=== PATIENT | male | born 1975 | race Caucasian/White ===

== ENCOUNTER 2018-06-09 05:05 | Emergency (ER) | payer OTHER ==
[~2018-06-09] VITALS: Ht 177.8 cm; Wt 88.1 kg
[2018-06-09 05:25] LABS: BASO # 0.1 x10^3/uL (0.0-0.2); BASO % 1 % (0-3); EOS # 0.2 x10^3/uL (0.0-0.7); EOS % 3 % (0-3); HEMATOCRIT 48.3 % (39.0-53.0); HEMOGLOBIN 16.7 g/dL (13.0-17.5); LYMPH # 2.8 x10^3/uL (1.0-4.8); LYMPH % 29 % (24-48); MEAN CORPUSCULAR HEMOGLOBIN 31 pg (25-35); MEAN CORPUSCULAR HGB CONC 35 g/dL (31-37); MEAN CORPUSCULAR VOLUME 90 fL (79-100); MONO # 0.9 x10^3/uL (0.0-1.1); MONO % 9 % (0-9); NEUT # 5.7 x10^3uL (1.8-7.7); NEUT % 59 % (31-73); PLATELET COUNT 236 x10^3/uL (140-400); RED CELL DISTRIBUTION WIDTH 12.8 % (11.5-14.5); WHITE BLOOD COUNT 9.7 x10^3/uL (4.0-11.0)
[2018-06-09] MEDS ORDERED: NITROGLYCERIN SUBLINGUAL 0.4 MG BOTTLE OF 25. SL ONE (05:30)
[2018-06-09 05:40] LABS: ALBUMIN 4.2 g/dL (3.4-5.0); ALBUMIN/GLOBULIN RATIO 1.2 (1.0-1.7); CALCIUM 9.3 mg/dL (8.5-10.1); CREATININE 1.2 mg/dL (0.7-1.3); GFR 66.4; POTASSIUM 4.1 mmol/L (3.5-5.1); TOTAL BILIRUBIN 0.6 mg/dL (0.2-1.0); TOTAL PROTEIN 7.6 g/dL (6.4-8.2)
--- NOTE | 2018-06-09 06:02 | EKG ---
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
--- NOTE | 2018-06-09 06:22 | ED.ADGEN ---
Past History Past Medical History: Hypertension Past Surgical History: Other Alcohol Use: Rarely Drug Use: None Adult General Chief Complaint Chief Complaint chest pain HPI HPI Patient is a 42 yo male with h/o HTN and family of CAD < 50 years of age who presents with acute onset left chest pain described as soreness starting approximately 2 hours prior to ED arrival. Chest discomfort radiates to left shoulder and left lower chest. It is associated with sweats and nausea. Patient drove to the [facility] and was given aspirin and transported [facility] department[facility]'s toes blood pressure is 190/100. Patient reports compliance with medication therapy. Current pain is rated 4 out of 10. No fever, cough, sore throat, leg pain or swelling. Patient denies exertional chest pain with exercise and returned 2 hours prior to ED arrival. Patient is a nonsmoker does not have any other cardiac risk factors. [] Review of Systems Review of Systems Review symptoms as per history of present illness. All other review symptoms are negative. [] All other systems were reviewed and found to be within normal limits, except as documented in this note. Current Medications Current Medications Current Medications Medications (Trade) Dose Ordered Sig/Annita Start Time Stop Time Status Last Admin Dose Admin Nitroglycerin (Nitrostat) 0.4 mg 1X ONCE 06/09/18 05:30 06/09/18 05:31 DC 06/09/18 05:22 0.4 MG Allergies Allergies Allergies Coded Allergies Type Severity Reaction Last Updated Verified No Known Drug Allergies 06/09/18 No Physical Exam Physical Exam Constitutional: Well developed, well nourished, no acute distress, non-toxic appearance. [] HENT: Normocephalic, atraumatic, bilateral external ears normal, oropharynx moist, no oral exudates, nose normal. [] Eyes: PERRLA, EOMI, conjunctiva normal, no discharge. [] Neck: Normal range of motion, no tenderness, supple, no stridor. [] Cardiovascular:Heart rate regular rhythm, no murmur, regular rate and rhythm. [] Lungs & Thorax: Bilateral breath sounds clear to auscultation [] Abdomen: Bowel sounds normal, soft, no tenderness, no masses, no pulsatile masses. [] Skin: Warm, dry, no erythema, no rash. [] Back: No tenderness, no CVA tenderness. [] Extremities: No tenderness, no cyanosis, negative Homans signs [] Neurologic: Alert and oriented X 3, normal motor function, normal sensory function, no focal deficits noted. [] Psychologic: Affect normal, judgement normal, mood normal. [] Current Patient Data Vital Signs Vital Signs Date Time Temp Pulse Resp B/P (MAP) Pulse Ox O2 Delivery O2 Flow Rate FiO2 06/09/18 05:22 58 156/89 06/09/18 05:10 98.4 18 96 Room Air Lab Results Laboratory Tests Test 06/09/18 05:09 White Blood Count 9.7 x10^3/uL (4.0-11.0) Red Blood Count 5.40 x10^6/uL (4.30-5.70) Hemoglobin 16.7 g/dL (13.0-17.5) Hematocrit 48.3 % (39.0-53.0) Mean Corpuscular Volume 90 fL (79-100) Mean Corpuscular Hemoglobin 31 pg (25-35) Mean Corpuscular Hemoglobin Concent 35 g/dL (31-37) Red Cell Distribution Width 12.8 % (11.5-14.5) Platelet Count 236 x10^3/uL (140-400) Neutrophils (%) (Auto) 59 % (31-73) Lymphocytes (%) (Auto) 29 % (24-48) Monocytes (%) (Auto) 9 % (0-9) Eosinophils (%) (Auto) 3 % (0-3) Basophils (%) (Auto) 1 % (0-3) Neutrophils # (Auto) 5.7 x10^3uL (1.8-7.7) Lymphocytes # (Auto) 2.8 x10^3/uL (1.0-4.8) Monocytes # (Auto) 0.9 x10^3/uL (0.0-1.1) Eosinophils # (Auto) 0.2 x10^3/uL (0.0-0.7) Basophils # (Auto) 0.1 x10^3/uL (0.0-0.2) Sodium Level 138 mmol/L (136-145) Potassium Level 4.1 mmol/L (3.5-5.1) Chloride Level 102 mmol/L (98-107) Carbon Dioxide Level 33 mmol/L (21-32) H Anion Gap 3 (6-14) L Blood Urea Nitrogen 20 mg/dL (8-26) Creatinine 1.2 mg/dL (0.7-1.3) Estimated GFR (Cockcroft-Gault) 66.4 BUN/Creatinine Ratio 17 (6-20) Glucose Level 97 mg/dL (70-99) Calcium Level 9.3 mg/dL (8.5-10.1) Total Bilirubin 0.6 mg/dL (0.2-1.0) Aspartate Amino Transferase (AST) 19 U/L (15-37) Alanine Aminotransferase (ALT) 28 U/L (16-63) Alkaline Phosphatase 61 U/L (46-116) Troponin I Quantitative < 0.017 ng/mL (0-0.055) Total Protein 7.6 g/dL (6.4-8.2) Albumin 4.2 g/dL (3.4-5.0) Albumin/Globulin Ratio 1.2 (1.0-1.7) EKG EKG [EKG: Normal sinus rhythm, rate 50, ST upsloping segments in leads 1, 2, aVL, T- wave inversion in leads 3. No acute ST segment elevation. ] Radiology/Procedures Radiology/Procedures [Chest x-ray: No acute cardiopulmonary disease on preliminary ED review of] Course & Med Decision Making Course & Med Decision Making Pertinent Labs and Imaging studies reviewed. (See chart for details) [Chest pain, 42 year-old male with moderate risk factors. Chest pain improved from a 4/10 to 1I 10 with nitroglycerin 1. Initial troponin is negative. Discussed with patient that given his risk factors and limitations of testing and emergency department ongoing chest pain, admission and transfer to [facility] is highly recommended. Patient is unsure if he wishes to be admitted at this time and currently seeking to get a hold of his commanding officer. Patient will be kept in the emergency department until he can determine what it is that he would wishes to do. Patient verbalizes understanding of risks and wishes to leave AGAINST MEDICAL ADVICE. Specifically risks of and disability were discussed with the patient and accepts responsibility for his incisions. He is further instructed that should he change his mind regarding hospital admission, he should immediately return. He is to otherwise follow-up with his post physician later today Final Impression Final Impression [1. Chest pain] Dragon Disclaimer Dragon Disclaimer This electronic medical record was generated, in whole or in part, using a voice recognition dictation system. NIKA ARRINGTON DO Jun 09, 2018 06:22
[2018-06-09 06:45] VITALS: BP 154/101
--- NOTE | 2018-06-09 07:40 | RAD ---
Indication: Chest pain Technique: Upright portable chest radiograph was obtained. No comparison is available. Findings: The lungs are clear. The cardiopulmonary silhouette is within normal limits. Bony structures are intact. Leads overlie the patient. Impression: No acute thoracic findings. Electronically signed by: Callum Hoyos MD (06/09/2018 7:37 AM) [facility]
== END 2018-06-09 06:51 | disposition left against medical advice (07) ==
LOC: ER 05:05
DX: R07.89 Other chest pain (principal); I10 Essential (primary) hypertension; I25.10 Atherosclerotic heart disease of native coronary artery without angina pectoris
CPT/HCPCS: 36415; 71045; 80053; 84484; 85025; 85379; 93005; 99285-25

== ENCOUNTER 2018-06-09 11:46 | Emergency (ER) | payer OTHER ==
--- NOTE | 2018-06-09 12:14 | PHYS DOC ---
Past History Past Medical History: Hypertension Past Surgical History: Other Alcohol Use: Rarely Drug Use: None Adult General Chief Complaint Chief Complaint: CHEST PAIN [facility] Patient is a 42 y/o male who presents for evaluation of substernal cp which began this morning around 3 AM. He has a history of hypertension and a family history of coronary artery disease below 50 yrs old. His pain radiates from the substernal region to the left shoulder. He was seen in the emergency department this morning and he was strongly advised that he be admitted however he had obligations with the and decided to leave AGAINST MEDICAL ADVICE. Was given 4 baby aspirin while he was here as well as nitroglycerin. He states the pain is worse and has been constant since he left. His enzymes were unremarkable earlier. His EKG upon arrival show some very mild questionable ST upsloping/elevation in 1, 2, 3, and aVL which is essentially unchanged from the EKG this morning but is noted to be abnormal. This is not obvious STEMI however I have paged interventional cardiology [facility] in case they would like to transfer the patient emergently. Otherwise, I plan to obtain cardiac enzymes to evaluate if there is been any cardiac ischemia and then transfer the patient to a facility with a boot and shoe laborer. The pt does appear uncomfortable. His BP upon arrival is 150/100. Review of Systems Review of Systems Constitutional: Denies fever or chills [] Eyes: Denies change in visual acuity, redness, or eye pain [] HENT: Denies nasal congestion or sore throat [] Respiratory: Denies cough or shortness of breath [] Cardiovascular: No additional information not addressed in [facility] [] +cp GI: Denies abdominal pain, nausea, vomiting, bloody stools or diarrhea [] : Denies dysuria or hematuria [] Musculoskeletal: Denies back pain or joint pain [] Integument: Denies rash or skin lesions [] Neurologic: Denies headache, focal weakness or sensory changes [] Endocrine: Denies polyuria or polydipsia [] All other systems were reviewed and found to be within normal limits, except as documented in this note. Allergies Allergies Allergies Coded Allergies Type Severity Reaction Last Updated Verified No Known Drug Allergies 06/09/18 No Physical Exam Physical Exam Constitutional: Well developed, well nourished, no acute distress, non-toxic appearance. [] Appears uncomfortable HENT: Normocephalic, atraumatic, bilateral external ears normal, oropharynx moist, no oral exudates, nose normal. [] Eyes: PERRLA, EOMI, conjunctiva normal, no discharge. [] Neck: Normal range of motion, no tenderness, supple, no stridor. [] Cardiovascular:Heart rate regular rhythm, no murmur [] Lungs & Thorax: Bilateral breath sounds clear to auscultation [] Abdomen: Bowel sounds normal, soft, no tenderness, no masses, no pulsatile masses. [] Skin: Warm, dry, no erythema, no rash. [] Back: No tenderness, no CVA tenderness. [] Extremities: No tenderness, no cyanosis, no clubbing, ROM intact, no edema. [] Neurologic: Alert and oriented X 3, normal motor function, normal sensory function, no focal deficits noted. [] Psychologic: Affect normal, judgement normal, mood normal. [] EKG EKG NSR, rate of 81, questionable upsloping/mild elevation in I, II, and aVL, unchanged from previous ekg performed earlier this morning, no STEMI Radiology/Procedures Radiology/Procedures [] Course & Med Decision Making Course & Med Decision Making Pertinent Labs and Imaging studies reviewed. (See chart for details) [] Laboratory Tests Test 06/09/18 12:15 Creatine Kinase 102 U/L Creatine Kinase MB (Mass) 0.9 ng/mL Creatine Kinase MB Relative Index 0.9 % Troponin I Quantitative < 0.017 ng/mL Current Medications Medications (Trade) Dose Ordered Sig/Annita Route PRN Reason Start Time Stop Time Status Last Admin Dose Admin Morphine Sulfate (Morphine 4mg Syringe) 6 mg 1X ONCE IV 06/09/18 12:30 06/09/18 12:31 DC 06/09/18 12:23 Nitroglycerin (Nitrostat) 0.4 mg STK-MED ONCE SL 06/09/18 12:44 06/09/18 12:45 DC Nitroglycerin (Nitrostat) 0.4 mg 1X ONCE SL 06/09/18 12:45 06/09/18 12:49 DC 06/09/18 12:48 @[address] [place] [address] paged for transfer. @[phone] - Dr. Bowers will call back. @[phone] - Dr. Bowers accepts the transfer [facility]. Pt agreeable to this plan. Still having pain, VSS. Dragon Disclaimer Dragon Disclaimer This electronic medical record was generated, in whole or in part, using a voice recognition dictation system. Departure Departure: Impression: Primary Impression: Unstable angina Additional Impression: Chest pain Disposition: 05 XFER OTHER (Dr. Bowers at [facility] Condition: STABLE Referrals: PCP,NO (PCP) Problem Qualifiers MATTHEW FAIR DO Jun 09, 2018 12:14
[2018-06-09] MEDS ORDERED: MORPHINE SULFATE 4 MG/ML DISP.SYRIN. IV ONE (12:30)
--- NOTE | 2018-06-09 12:30 | EKG ---
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
[2018-06-09] MEDS ORDERED: NITROGLYCERIN SUBLINGUAL 0.4 MG BOTTLE OF 25. SL ONE ×2 (12:44→12:45)
[2018-06-09] MEDS ORDERED: HYDROmorphone PF 1 MG/ML DISP.SYRIN ONE (13:42)
[2018-06-09 14:05] VITALS: BP 133/82
== END 2018-06-09 14:10 | disposition short-term general hospital (02) ==
LOC: ER 11:46
DX: I20.0 Unstable angina (principal); I10 Essential (primary) hypertension
CPT/HCPCS: 36415; 82553; 84484; 93005; 96374; 99285; J2270